=== PATIENT | male | born 1955 | race Caucasian/White ===

== ENCOUNTER 2019-06-03 05:27 | Day surgery (SDC) | payer OTHER ==
[~2019-06-03] VITALS: Ht 180.3 cm; Wt 118.8 kg
[2019-06-03 06:48] LABS: BASOPHILS 0.3 % (0-2); EOSINOPHILS 2.3 % (0-7); HEMATOCRIT 37.3 % (42.0-54.0); HEMOGLOBIN 12.5 g/dL (13.5-17.5); IMMATURE GRANULOCYTES 0.2 % (0-5); LYMPHOCYTES 27.1 % (15-50); MCH 30.1 pg (26.0-34.0); MCHC 33.5 g/dL (31.0-37.0); MCV 89.9 fL (80.0-100.0); MEAN PLATELET VOLUME 9.4 fL (7.4-10.4); MONOCYTES 8.8 % (2-11); NEUTROPHILS 61.3 % (40-80); PLATELET COUNT 175 10x3/uL (130-400); RBC 4.15 10x6/uL (4.20-6.10); RDW 13.6 % (11.5-14.5)
[2019-06-03] MEDS ORDERED: KLOR-CON M2020 MEQ PO (07:00)
[2019-06-03] MEDS ORDERED: LASIX40 MG PO (07:00)
[2019-06-03] MEDS ORDERED: NEURONTIN600 MG PO (07:00)
[2019-06-03] MEDS ORDERED: THEO-24100 MG PO (07:01)
[2019-06-03] MEDS ORDERED: THEOCHRON100 MG PO (07:01)
[2019-06-03 07:02] LABS: CARBON DIOXIDE 27.1 mmol/L (21.0-32.0); CREATININE - SERUM 1.1 mg/dL (0.6-1.3); POTASSIUM - SERUM 4.1 mmol/L (3.5-5.1)
[2019-06-03] MEDS ORDERED: ZYLOPRIM100 MG PO (07:02)
[2019-06-03] MEDS ORDERED: LISINOPRIL10 MG PO (07:02)
[2019-06-03] MEDS ORDERED: ASPIRIN81 MG PO (07:02)
[2019-06-03] MEDS ORDERED: INDERAL 40 MG T40 MG PO (07:03)
[2019-06-03] MEDS ORDERED: HYTRIN10 MG PO (07:04)
[2019-06-03] MEDS ORDERED: RANITIDINE HCL150 M1 PO (07:05)
[2019-06-03] MEDS ORDERED: ALDACTONE100 MG PO (07:05)
[2019-06-03 07:06] LABS: APTT 28.3 SECONDS (22.8-39.4); INR 1.01 (0.85-1.17); PROTIME 12.8 SECONDS (11.6-15.0)
[2019-06-03 07:12] VITALS: BP 113/65; Ht 180.3 cm; Wt 118.8 kg
--- NOTE | 2019-06-03 08:42 | NUR ---
0838 SERVED FULL LIQUID DIET. ADC GUARDS @ BEDSIDE X'S Chris MARTINEZ R.N.
--- NOTE | 2019-06-03 09:35 | NUR ---
0935 VERIFIED WITH CORE ASSEMBLY SUPERVISOR, Susy WYATT R.N. THAT PT [facility]. SHE STATES THAT IF CATHETERIZATION NEEDED IT MAY BE DONE BY STAFF @ [facility]. IV DC'ED WITH CATHETER INTACT & 350ML LTC. DRESSING. GUARDS @ BEDSIDE. Liat MARTINEZ R.N.
--- NOTE | 2019-06-03 10:58 | OP ---
PATIENT NAME: HORACIO SCHRADER MEDICAL RECORD: [id number] LOCATION:D[facility] ADMISSION DATE: SURGEON: MEREDITH LIRA MD DATE OF OPERATION: 06/03/2019 SURGEON: Meredith Lira MD INORGANIC CHEMIST: TRES by Bryce Roy CRNA. DIAGNOSES: Tad hematuria, abnormal digital rectal examination of the prostate. PROCEDURE: Cystoscopy, transrectal ultrasound (TRUS), and prostate biopsy. FINDINGS: Digital rectal examination shows an average sized prostate with the right lateral nodule. Cystoscopy shows a vascular prostate with trilobar hyperplasia. The prostate is obstructive. Single ureteral orifices are seen bilaterally with no bladder tumors. Transrectal ultrasound shows a 35 gram prostate. No hypoechoic areas seen in the prostate on ultrasound. SPECIMENS: Prostate biopsy cores. BLOOD LOSS: Minimal. CLINICAL HISTORY: This is a 64-year-old male, who is a prisoner. He was seen by Dr. Kinney in the [facility] and the patient complained of episodes of tad hematuria. He has some obstructive voiding symptoms also. On digital rectal examination, he has a nodule palpable on the right lateral part of the prostate. He comes today to have a cystoscopy for the hematuria workup. He will also have a prostate biopsy done. He is not allergic to any medications. He was given Ancef quality control to the OR. DESCRIPTION OF PROCEDURE: The patient was given IV sedation. He was placed into lithotomy position and prepped and draped. A 17-German cystoscope with 30-degree lens was used for visualization. He has large obstructive lateral lobes. The bladder neck is rather tall. The prostatic urethra itself is very vascular. Going into the bladder, no bladder tumors were seen. The bladder was then emptied through the cystoscope sheath and then the scope was removed. We then introduced the transrectal ultrasound probe. Prostate size measurements were obtained. We then obtained sextant biopsies with at least 3 cores from each sextant. Once all the specimens were obtained, the procedure was terminated. The patient will be returning to [facility]. The results will be conveyed to him through Dr. Kinney. TRANSINT:[id number] Voice Confirmation ID: [id number] DOCUMENT ID: [id number] OPERATIVE REPORT [id number] HORACIO SCHRADER MEREDITH LIRA MD at 1058 CC: [id number] DICTATION DATE: 06/03/19 0818 SENIOR MANAGEMENT CONSULTANT: 06/03/19 1045 REG [facility] 0 [facility], [facility]
--- NOTE | 2019-06-03 12:58 | NUR ---
0944 DRESSED, AWAKE & ALERT. GIVEN DISCHARGE INFORMATION INCLUDING: MED REC, [facility] OUTPATIENT D/C INSTRUCTIONS, & POST CYSTOSCOPY & PROSTATE BIOPSY D/C INSTRUCTIONS. PT VOICED UNDERSTANDING. TO ADC VAN VIA WHEELCHAIR. TO RETURN TO [place] [facility] ESCORTED BY 2 GUARDS. Liat MARTINEZ R.N.
== END 2019-06-03 09:44 ==
LOC: D.OPS 05:27
PROVIDERS: Anesthesiology; ATTEND Urology
DX: R31.9 Hematuria, unspecified (principal)